=== PATIENT | female | born 1930 | race Caucasian/White ===

== ENCOUNTER 2016-10-11 13:36 | Emergency (ER) | payer MEDICARE, MEDICAID ==
[~2016-10-11] VITALS: Ht 170.2 cm; Wt 108.9 kg
[~2016-10-11 13:36] MED LIST: ATORVASTATIN CA10 M1 PO; ATORVASTATIN CA10 MG PO; AUGMENTIN1 TA2 PO; CLOPIDOGREL75 M1 PO; CLOPIDOGREL75 M2 PO; FUROSEMIDE 40MG40 M1 PO; LEVOTHYROXIN0.088 MG PO; LISINOPRIL 10MG10 MG PO; MONTELUKAST SOD10 MG PO; NITROGLYCERIN0.4 MG SL; OXYBUTYNIN CHLO10 MG PO; PANTOPRAZOLE SO40 M1 PO; PANTOPRAZOLE SO40 MG PO; PREDNISONE50 MG PO; SINGULAIR 10 MG10 MG PO; TOLTERODINE TART1 MG PO; VESICARE5 MG PO; ZOVIRAX800 MG PO
[2016-10-11] MEDS ORDERED: NORCO 325 MG-51 TAB PO (14:35)
--- NOTE | 2016-10-11 14:38 | Emergency Room Report ---
History of Present Illness Time Seen by MD Vargas Presenting Problem in Triage Pt arrived:Wheelchair Presenting Problem:PT C/O LEFT ARM SWELLING AND TENDERNESS THAT STARTED YESTERDAY. 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 N Clinical Suspician of Infection? N Mental Status: 1 - Regular (Normal Baseline) Sepsis Risk:Low Sepsis Risk Have you (or family members/close friends) recently traveled outside the [place]? N If Yes, where/when: Have you had exposure to infectious disease within the past month? N TB? Other? Specify: Comment The patient slipped while sitting down the toilet yesterday and had to catch her self with her LEFT arm. Since then she has had pain and swelling in her LEFT wrist and some soreness in her LEFT shoulder. The pain in her wrist is much worse than the shoulder. Severe pain with movement. No numbness. Denies injury to head or neck chest abdomen back or lower extremities. No pain medications taken prior to arrival. 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 ALLERGIES Coded Allergies: No Known Allergies (07/31/15) Home Medications Active Scripts LISINOPRIL (Lisinopril) 10 MG PO DAILY #30 TAB Ref 2 Prov: 08/02/15 Reported Medications Tolterodine Tartrate 1 MG PO BID #60 TAB CLOPIDOGREL BISULFATE (Clopidogrel) 75 MG PO DAILY #30 TAB Atorvastatin Calcium 10 MG PO DAILY #30 TAB Montelukast Sodium 10 MG PO QHS #30 TAB Levothyroxine Sodium (Levothyroxine 0.088MG) 88 MCG PO DAILY Furosemide 40 MG PO QID #120 NITROGLYCERIN (Nitrostat) 0.4 MG SL [id number] PRN ANGINA #25 Pantoprazole Sodium 40 MG PO DAILY #30 Oxybutynin Chloride (Oxybutynin Chloride ER) 10 MG PO DAILY #30 History Medical History General CAD? No Angina: Yes ND: Yes Hypertension? Yes Hyperlipidemia? Yes CHF? Yes DVT? No PE? No COPD? No Asthma? Yes Anemia? No GERD? No Gastric ulcers? No GI Bleed? No Hernia? No Thyroid Problems? Yes Hypothyroidism? Yes CVA? No Seizures? No Diabetes? No Renal Insuffiency? No End Stage Renal Disease? No UTI? No Stones? No BPH? No GB Disease: Yes Nephritic Syndrome? No Asplenia? No Hepatitis? No Sickle Cell Disease? No Arthritis? No Migraines? No Cataracts? Yes Glaucoma? No MRSA? No HIV? No TB? No Anxiety? No Depression? No Cancer? No Immunization Hx DT/Tetanus Unknown Flu Refused Pneumonia Received In Past Surgical Hx Previous Surgery?Y HYSTERECTOMY CERVICAL NECK LEFT ROTATOR CUFF GALLBLADDER REMOVED SURGERY TO TOE, LEFT FOOT BILATERAL CATARACTS Family History Family Hx Diabetes Yes CAD Yes Hypertension Yes Hyperlipidemia Yes Cancer No TB No Social History Smoking Hx Smoker: Never Smoker Tobacco: No Alcohol Alcohol: No Review of Systems All Other Systems Reviewed and Negative Musculoskeletal see HPI, joint pain Physical Exam Vital Signs Vital Signs Date Time Temp Pulse Resp B/P Pulse O2 O2 Flow FiO2 Ox Delivery Rate 10/11 1431 16 10/11 1342 98.8 94 16 154/72 97 General Appearance normal appearance, sitting in a wheelchair Neck normal inspection, non-tender, supple, full range of motion Respiratory Status No: respiratory distress. Cardiovascular normal peripheral pulses Gastrointestinal non tender Back no CVA tenderness, no vertebral tenderness Extremities mild tenderness of LEFT shoulder, surgical scar and chronic deformity present. no edema, ecchymosis, or effusion of the shoulder., moderate edema of LEFT wrist and hand. Ecchymosis present.Exquisite tenderness of LEFT wrist, mild tenderness of the dorsal hand., normal pulses, capillary refill, sensation, and movement of digits., no tenderness or edema of the remainder of her forearm, elbow, or distal portion of the humerus. Neurologic alert Medical Decision Making LABS/Meds/Orders Pt receiving controlled substance in ED? Yes Adam was queried for this patient? No Reason not queried - emergent pt cond=no time Results/Orders Current Medication Orders Sig/Noemy Start time Last Medication Dose Route Stop Time Status Admin Acetaminophen/ 1 TAB ONCE ONE 10/11 1430 DC 10/11 Hydrocodone Bitart PO 10/11 1431 1431 Acetaminophen/ 0 .STK-MED ONE 10/11 1430 DC Hydrocodone Bitart PO Orders Procedure Date/time Status STABILIZE JOINT 10/11 1434 Active GEN NSG/PT REQ (NOT FOR MEDS!) 10/11 1434 Active HUMERUS-LT 10/11 1348 Active WRIST-3 VIEWS-LT 10/11 1345 Active [id number] VIEW COMP.-LT 10/11 1345 Active XRAY/CT/US XRAY/CT/US XRAY shoulder, upper arm, wrist Comment X-ray interpreted by Dejan Tsang M.D.: Shoulder: Severe osteoarthritis and chronic subluxation. No fracture seen. 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 No fracture seen. Wrist: No fracture or dislocation seen. Procedures Orthopedic/Inj/Splint Progress The patient's LEFT wrist is placed in a splint due to clinical findings for the possibility of an occult fracture. Splint Application Performed by: DEJAN TSANG Consent: Verbal consent obtained. Risks and benefits: risks, benefits and alternatives were discussed Consent given by: patient Patient identity confirmed: verbally with patient Splinting material: Orthoglass + LUIS wrap Type of splint: volar wrist Location: LEFT Patient tolerance: Patient tolerated the procedure well with no immediate complications Neurovascular status intact with good sensation, capillary refill and movement before and after splint applied. Departure Departure Disposition DC Home or Self Care(routine) Clinical Impression Primary Impression: Left wrist sprain Qualifiers: Encounter type: initial encounter Qualified Code: S63.502A - Unspecified sprain of left wrist, initial encounter Secondary Impressions: Left shoulder strain Qualifiers: Encounter type: initial encounter Qualified Code: S46.912A - Strain of unspecified muscle, fascia and tendon at shoulder and upper arm level, left arm, initial encounter Condition STABLE Referrals Hadley LUTHER,A.C. (Family) Patient Instructions DI for Shoulder Sprain, DI for Wrist Sprain, How to Take Care of Your Splint, How to Use a Sling Prescriptions Current Visit Scripts HYDROCODONE/ACETAMINOPHEN ([place] 5-325 Tablet) 1 TAB PO Q6HP PRN pain #10 TAB ED Critical Care Critical Care No at 1436
[2016-10-11 14:43] VITALS: BP 148/70
--- NOTE | 2016-10-11 21:10 | RADIOLOGY REPORT PS360 ---
WRIST-3 VIEWS-LT HISTORY: Pain POSSIBLE INJURY ORDERING PHYSICIAN: Dejan Lorenzo MD PATIENT AGE: 86 years COMPARISON: None FINDINGS: No fracture or dislocation. No lytic or blastic change. There is normal mineralization. The joint spaces are well-preserved. No significant degenerative/arthritic changes. No erosive changes evident. IMPRESSION: Negative, no acute finding
--- NOTE | 2016-10-11 21:14 | RADIOLOGY REPORT PS360 ---
[id number] VIEW COMP.-LT HISTORY: POSSIBLE INJURY ORDERING PHYSICIAN: Dejan Lorenzo MD PATIENT AGE: 86 years COMPARISON: None FINDINGS: There are 2 views submitted which are in internal and external rotation view. There is deformity of the humeral head with osseous sclerotic fragment along the superior aspect of the humeral head. These findings are probably related to old fracture and/or avascular necrosis. Cannot see the possibility of a dislocation based on these 2 images as the humeral head appears somewhat medial to the expected location within the glenoid. A scapular Y view or CT is recommended for further evaluation. There are osteoarthritic changes of the acromioclavicular joint. IMPRESSION: Abnormal left shoulder with deformity of the humeral head which could be due to an old fracture with osteosclerotic fragment superiorly. A vascular process is also considered. Humeral head appears subluxed medially and could be dislocated. Scapular Y view or preferably CT scan suggested for further evaluation.
--- NOTE | 2016-10-11 21:15 | RADIOLOGY REPORT PS360 ---
HUMERUS-LT CLINICAL INDICATION: Pain poss injury ORDERING PHYSICIAN: Dejan Lorenzo MD PATIENT AGE: 86 years COMPARISON: None FINDINGS: There are 2 views submitted which are in internal and external rotation view. There is deformity of the humeral head with osseous sclerotic fragment along the superior aspect of the humeral head. These findings are probably related to old fracture and/or avascular necrosis. Cannot see the possibility of a dislocation based on these 2 images as the humeral head appears somewhat medial to the expected location within the glenoid. A scapular Y view or CT is recommended for further evaluation. There are osteoarthritic changes of the acromioclavicular joint. The mid and distal aspect of the humerus has an unremarkable appearance. IMPRESSION: Abnormal left humerus with deformity of the humeral head which could be due to an old fracture with osteosclerotic fragment superiorly. Avascular necrosis is also considered. Humeral head appears subluxed medially and could be dislocated. Scapular Y view or preferably CT scan suggested for further evaluation.
== END 2016-10-11 14:43 | disposition home or self-care (01) ==
LOC: ER 13:36
PROC: 2W3DX1Z Immobilization of Left Lower Arm using Splint (ICD-10-PCS; principal; 2016-10-11)
DX: S63.502A Unspecified sprain of left wrist, initial encounter (principal); S46.912A Strain of unspecified muscle, fascia and tendon at shoulder and upper arm level, left arm, initial encounter